=== PATIENT | male | born 1955 | race African-American/Black ===

== ENCOUNTER 2017-05-15 17:42 | Inpatient (IN) | payer MEDICARE ==
--- NOTE | ~2017-05-15 | EKG ---
PATIENT: DELMI VASQUEZ UNIT #: [id number] Ventricular Rate: 58 BPM Atrial Rate: 58 BPM P-R Interval: 172 ms QRS Duration: 80 ms Q-T Interval: 418 ms QTC Calculation(Bezet): 410 ms P [place]: 51 degrees Calculated R [place]: -19 degrees Calculated T [place]: 89 degrees Diagnosis Line: Sinus bradycardia Diagnosis Line: Poor R wave progression questionable lead position Diagnosis Line: or body habitus Diagnosis Line: Nonspecific T wave abnormality Diagnosis Line: Abnormal ECG Diagnosis Line: No previous ECGs available Diagnosis Line: Confirmed by KENDAL SMITH MD ([id number]) on Diagnosis Line: 05/16/2017 10:09:32 AM INTERPRETING MD: ROSA ISELA
--- NOTE | ~2017-05-15 | CT71 ---
[facility] A Service of [facility] RADIOLOGY TEXT RESULTS PATIENT: DELMI VASQUEZ LOCATION: [facility] 328- : 55 UNIT #: [id number] AGE: [address]: Brayan Kumar MD SEX: M ORDER DR: [id number] [facility] [address] [place], [place] [address] [id number] I MR#: [id number] Acc #: [id number] NAME: DELMI VASQUEZ : 1955 SEX: M STUDY DATE/TIME: 05/15/2017 23:29 UNIT: A U ROOM: [facility] STUDY DESCRIPTION: CT Head Wo Contrast Attending Physician: Brayan Kumar M.D. Ordering Physician: Ross Harper M.D. Primary Care Physician: Primary Care Physician No MEDICAL IMAGING REPORT This report is preliminary unless electronic signature is present EXAM CT scan of the head without contrast INDICATION Stroke in 2003 and the patient is now off balance with multiple falls in the last 2 months which is worse today. There is no comparison. This CT exam was performed with one or more of the following radiation dose reduction techniques: automatic exposure control, adjustment of mA and/or kV according to patient size, and iterative reconstruction. FINDINGS Axial noncontrast images were obtained from the skull base to the vertex. Ventricular size and configuration are normal. There is no evidence of acute infarct or hemorrhage. There are no extra-axial fluid collections. No mass lesion or mass effect is seen. There are no skull fractures. IMPRESSION Normal noncontrast head CT. Dictated by... Konrad Chu M.D. THIS IS AN ELECTRONICALLY VERIFIED REPORT Konrad Chu M.D. at 05/17/2017 5:01 AM GAETANO/ebony TD: 05/17/2017 00:44 [facility] A Service of [facility] RADIOLOGY TEXT RESULTS PATIENT: DELMI VASQUEZ LOCATION: [facility] 328- : 55 UNIT #: [id number] AGE: [address]: Brayan Kumar MD SEX: M ORDER DR: JOB #: [id number] MEDICAL IMAGING REPORT Page 1 of 1 COPY
--- NOTE | ~2017-05-15 | CO ---
Unit #: [id number] #: [id number] Patient: DELMI VASQUEZ [id number] [facility] [address] [place], [place] [address] [id number] I MR#: [id number] NAME: DELMI VASQUEZ ROOM: 328 Age: 62 Sex: M Admission Date: 05/15/2017 : 1955 Attending Physician: Brayan Kumar M.D. Requesting Physician: Brayan Kumar M.D. Consultation Date: 05/17/2017 CONSULTATION REPORT REASON FOR CONSULT CVA. PATIENT IDENTIFICATION A 62-year-old right-handed male evaluated in room 328 at [facility]. SOURCE OF INFORMATION Obtained from the patient and the patient's niece, as well as the medical record. HISTORY OF PRESENT ILLNESS This is a 62-year-old right-handed male with a past medical history reportedly of CVA in 2003, hypertension, and hyperlipidemia, who presented with complaints of per his niece facial drooping and being off balance. I initially discussed with the patient, though he seems to be a poor historian, and he states that his facial weakness has been present since his stroke and reports he came because he has been falling for a couple of weeks. He denies dizziness or vertigo, loss of consciousness, syncope, or new stroke symptoms. He denies focal weakness or paresthesia. He does complain of right facial pain, but when I ask further, he states it is his gums and not his face, and on exam he does appear to have a broken and diseased tooth in the area that he is feeling pain. I spoke with his niece via telephone, and then Dr. Loya and I spoke with her today at the bedside. She states that he lives with her, that she takes care of him, and that he has memory loss from his prior stroke. She states that he has been worsening over the past week or so with falls, tripping over his feet. There has been no loss of consciousness. She does report that his right facial weakness is new, but the patient reports that it is old. She reports that he was seen at [facility] in 2003 for stroke and was "in a coma" and has residual "memory loss." Patient was fully seen and evaluated, chart reviewed, and review of systems attempted. On exam, the patient initially looked as though he might have had right internuclear ophthalmoplegia with inability to move his right eye medially. There has been no ptosis. However, today, he appears to have orbicularis oculi weakness, but he is able to close his eyes and approximate. There is no clear ptosis, but he does appear to have weakness more so under his eyes and appears to have more of a picture of right seventh cranial nerve involvement including on his forehead and appears more prominent today. We looked at him with his niece who he lives with, and she states that this is all new and that it started on Unit #: [id number] #: [id number] Patient: DELMI VASQUEZ Wednesday. As far as the patient's complaints of falls, he is nonfocal on exam, but he does appear to have a wide-based mildly spastic gait, a little bit stooped, but he does not have any significant spasticity on exam. He does not have any increased tone, and whenever he says he falls, he states that he just gets tripped up. His niece states that he trips over his feet, and that there has been no focal weakness or paresthesia, and the patient denies any focal weakness or paresthesia. However, on evaluation of his MRI of the brain and MRA of the head and neck for possible stroke, there appears to be an abnormal appearance to the upper cervical spine visualized on the sagittal T1 weighted imaging of the brain. Therefore, we ordered an MRI of the C-spine to look at that given his history of falls recently. MRI of the cervical spine was reviewed at length by Dr. Loya at the time of his evaluation and discussed with the patient and the patient's niece at the bedside. Full dictated report is pending. However, it does show cord compression and cord signal change at C2-C3, and Dr. Loya is concerned about those findings regardless of his clinical examination. He does have more brisk reflexes in the lower extremities, a little bit hyperreflexive, unable to elicit reflexes in the lower extremities. Again, he is able to ambulate independently, but he does have a stooped posture and a mildly wide-based spastic gait. He does not appear to be myelopathic on exam, but MRI findings are certainly concerning especially if he is falling. PAST MEDICAL HISTORY 1. Stroke in 2003 per the patient's niece. I do not have the details regarding his stroke in 2003. His niece tells me that he was "in a coma" and has memory loss. 2. Hyperlipidemia. 3. Hypertension. 4. Benign prostatic hypertrophy. FAMILY HISTORY Noncontributory to the presenting condition. SOCIAL HISTORY The patient smokes cigars. He denies alcohol abuse or illicit drug use. ALLERGIES No known drug allergies. HOME MEDICATIONS 1. Simvastatin. 2. Toprol-XL. 3. Lexapro. 4. Flomax. 5. Plavix. REVIEW OF SYSTEMS Difficult to obtain from the patient as he is a poor historian, but a 14-point review of systems was attempted per the patient and with the niece as well contributing. Pertinent positives are as discussed above, otherwise negative. PHYSICAL EXAMINATION VITAL SIGNS: Temperature 99.5. He has had a T-max of 100; otherwise, he has been afebrile. Pulse 69, respirations 18, blood pressure 114/65, and Unit #: [id number] #: [id number] Patient: DELMI VASQUEZ oxygen saturation 98%. Height 5 feet 3 inches, weight 151 pounds. BMI is 24. NEUROLOGIC EXAMINATION GENERAL: Patient is awake. He is alert. He is oriented to person and place but not time. He is a poor historian. He recognizes his niece at the bedside. He follows simple commands. He has no tjptk-ha-lwjs confusion and no finger agnosia. He is not aphasic or dysarthric. CRANIAL NERVES: He demonstrates full garham of vision. At this time, he appears to have a clinical picture of seventh cranial nerve involvement on the right side. No clear ptosis, but as discussed above, has orbicularis oculi weakness, but he is able to close his eyes and approximate. He has right lower facial paralysis. He appears to have some exophthalmus and initially yesterday it appeared as though he had some trouble with medial movement of his right eye, but that is not evident today. Sensory exam is intact. Hearing is intact to finger rub and conversation. Tongue is midline, uvula is midline, and palate elevation is normal. Head turning and shoulder shrug is unremarkable. Neck is supple. MOTOR: He demonstrates normal bulk and tone. No increased tone or cogwheeling seen. Strength is essentially equal in all extremities 5 over 5 to 5+ over 5. SENSORY: Exam is intact. No extinction appreciated. GAIT: As discussed above. ROMBERG: Deferred. REFLEXES: As discussed above. COORDINATION: No pass-pointing and normal hrtqsk-iv-hote. DIAGNOSTIC STUDIES LABORATORY: CBC on arrival unremarkable. BMP unremarkable other than a BUN of 28, creatinine 1.7, estimated GFR 42.3, and total protein 8.5. PT 10.7, INR 1, and PTT 28.2. B12 of 426 and folate 13.8. IMAGING: (1) MRI of the brain without contrast, impression per Radiology report: No evidence for recent ischemic insult on the diffusion series. There is an abnormal appearance to the upper cervical spine where visualized on the sagittal T1-weighted imaging of the brain. Concern for severe cord flattening and canal stenosis, and it is possible that cervical cord myelopathic change is responsible for some of the patient's symptoms. 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 Patient has had prior posterior circulation insults with old lacunar-type insults to the left greater than the right cerebral hemisphere, medial thalami, and at least the right paramedian mid brain. Otherwise, mild probable sequelae of small vessel disease. No intracranial mass effect. Paranasal sinus disease right maxillary sinus but no air-fluid level. (2) MRA of the head without contrast on May 16, 2017, impression per Radiology report: No intracranial vascular cutoff is suspected. Right A1 vessels mildly hypoplastic, and there may be mild more distal narrowing. There is a triangular configuration to the vessels at the left side anterior communicator where it joins the left-sided A1 and A2 vessels. This is probably a developmental variation. No discrete saccular aneurysm is suspected, but the area of interest measures up to about 4 mm dimension, and for this reason recommend followup MR angiogram in about one year to assess for stability per Radiology report. (3) MRA of the neck without contrast on May 16, 2017, impression per Radiology report: By NASCET criteria, no hemodynamically significant narrowing suspected at either carotid bifurcation. Both vertebral arteries are patent in the visualized portions. (4) MRI of the cervical spine, full dictated report is pending, Unit #: [id number] #: [id number] Patient: DELMI VASQUEZ voice clip reviewed and discussed above. Imaging reviewed by Dr. Loya at the time of his evaluation and discussed above. (5) CT of the head without contrast on May 15, 2017, impression per Radiology report: Normal. CARDIOLOGY: EKG on May 16, 2017, per Cardiology report: Sinus bradycardia, poor R wave progression, questionable lead position or body habitus, and nonspecific T wave abnormality. Other labs and diagnostic studies are as per chart and have been reviewed. IMPRESSION 1. New complaint of falls, subacute, with abnormal cervical spine imaging. 2. 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 Will start the patient on Famvir and prednisone with symptoms that started on Wednesday. See Dr. Loya's orders in his note. He has ordered Famvir, prednisone, eye patch, and Lacri-Lube. MRI of the brain is negative for any acute stroke. DISCUSSION Dr. Loya discussed with the patient and the patient's niece who he lives with at length. What is worrisome is that he appears to have severe C2-C3 area canal problems and myelopathic changes which could be old, but they are very severe, his gait is abnormal, and he is falling. He is at risk of more issues if he falls again which makes clinical picture much more concerning. Dr. Loya discussed with the patient, the patient's niece, and also with Dr. Broussard, the hospitalist physician. The family wants him transferred to another facility that can provide neurosurgical or spine surgical evaluation, and efforts are being made to transfer him to [facility] per the admitting team at this time. 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 From our standpoint, he is okay to transfer. Dr. Loya has seen the patient, and he agrees with the above dictation. We thank you very much for allowing us to assist in the care of this patient. Dictated by... Aelxa Davidson A.P.R.N. for Dulce Baugh/annamarie TD: 05/17/2017 18:06 JOB #: [id number] CONSULTATION REPORT Page 1 of 1 X Alexa Davidson APRN X CONSULTATION REPORT
--- NOTE | ~2017-05-15 | HP ---
Unit #: [id number] #: [id number] Patient: DELMI VASQUEZ [id number] [facility]. [place], [place] [address] [id number] I MR#: [id number] NAME: DELMI VASQUEZ ROOM: 328 Age: 62 Sex: M Admission Date: 05/15/2017 : 1955 Attending Physician: Brayan Kmuar M.D. HISTORY AND PHYSICAL CHIEF COMPLAINT Fall. HISTORY OF PRESENT ILLNESS The patient is a 68-year-old male who is a very poor historian. He states that he came to the hospital because his niece overreacted. He states that he had a fall at home, and that he thinks that he is okay, but his niece overreacted and insisted that he come. He is unwilling to admit to any other symptoms or complaint; therefore, from the chart I glean that the patient has been admitted for possible stroke. PAST MEDICAL HISTORY The patient denies any significant past medical history. He says he has only sinus trouble. PAST SURGICAL HISTORY The patient tells me he has had one surgery, but it has been such a long time ago that he does not remember what it is. SOCIAL HISTORY The patient states he smokes cigars but denies alcohol and illicit drug use. FAMILY HISTORY The patient denies any significant family history. HOME MEDICATIONS 1. Simvastatin 40 mg daily. 2. Toprol-XL 50 mg p.o. daily 3. Lexapro 20 mg daily. 4. Flomax 0.4 mg p.o. daily. 5. Plavix 75 mg p.o. daily. ALLERGIES No known drug allergies. REVIEW OF SYSTEMS Essentially unable to obtain. The patient denies any and all problems, though he does again, admit to a fall. PHYSICAL EXAMINATION VITAL SIGNS: Temperature 98.8, pulse 69, and blood pressure 104/68. GENERAL: A 62-year-old male in no acute distress who appears stated age. HEENT: Pupils equally round. Extraocular movements intact. Mucous Unit #: [id number] #: [id number] Patient: DELMI VASQUEZ membranes dry. NECK: Supple. No JVD, no lymphadenopathy. CARDIAC: Regular rate and rhythm. No murmurs, gallops, or rubs. LUNGS: Clear to auscultation bilaterally. ABDOMEN: Nontender and nondistended. Positive bowel sounds. EXTREMITIES: No clubbing, cyanosis, or edema. They are warm and dry. PSYCHIATRIC: Alert and oriented x3. Affect is appropriate. NEUROLOGIC: Patient has some facial droop but no slurred speech. Muscle strength is full in all extremities. SKIN: No rashes, bruises, or ulcers. MUSCULOSKELETAL: No muscle or joint pain. No muscle or joint swelling. DIAGNOSTIC STUDIES LABORATORY: Creatinine is 1.7; otherwise, chemistries are normal. Coagulation studies are normal. CBC is normal. IMAGING: CT head without contrast is noted to have no acute intracranial abnormalities. ASSESSMENT AND PLAN 1. Facial droop. The patient has been admitted for workup for possible stroke. MRI/MRA is pending. 2. Prophylaxis. The patient will be started on Lovenox. 1. Dictated by Dulce Duffy/annamarie TD: 05/16/2017 14:44 JOB #: [id number] HISTORY AND PHYSICAL Page 1 of 1 X Brayan Kumar MD HISTORY AND PHYSICAL
--- NOTE | ~2017-05-15 | MR18 ---
[facility] A Service of [facility] RADIOLOGY TEXT RESULTS PATIENT: DELMI VASQUEZ LOCATION: [facility] 328-01 : 55 UNIT #: [id number] AGE: [address]: Brayan Kumar MD SEX: M ORDER DR: [id number] [facility] [address] [place], [place] [address] [id number] I MR#: [id number] Acc #: [id number] NAME: DELMI VASQUEZ : 1955 SEX: M STUDY DATE/TIME: 05/16/2017 11:11 UNIT: A PCU ROOM: 328 STUDY DESCRIPTION: MR Brain Wo Contrast Attending Physician: Brayan Kumar M.D. Ordering Physician: Soha Willingham M.D. Primary Care Physician: Primary Care Physician No MRI CENTER REPORT This report is preliminary unless electronic signature is present. EXAM Brain MRI without HISTORY CVA, complains of being off balance with multiple falls for 2 months worse since 05/15/2017. History of hypertension and stroke. Please evaluate for new stroke. COMMENT MRI of the brain was performed without contrast using routine 1.5T imaging technique. There is earlier head CT from 05/15/2017. There is no evidence for recent ischemic insult on the diffusion series. Some degenerative change partly seen in the upper cervical spine and I believe there is severe canal stenosis and significant cord compromise at the level of C2-3. In light of history, I would recommend correlation with an MRI of the cervical spine for further characterization since this could be resulting in myelopathic change. I suspect given the signal characteristics in the upper cervical spine that there is ossification of the posterior longitudinal ligament. There is no MRI evidence for intracranial hemorrhage. There is chronic lacunar type insult at the periphery of the left cerebellar hemisphere superiorly. Smaller chronic lacunar disease right cerebellar hemisphere. The major intracranial flow voids are maintained. The patient has old lacunar insults in the bilateral medial basal ganglia and probably the midbrain particularly right paramedian location. Please correlate with history of prior posterior circulation insult. Otherwise, there is mild white matter signal abnormality in the subcortical deep and periventricular white matter of the supratentorial brain most confluent in STS. [facility] A Service of [facility] & [facility] RADIOLOGY TEXT RESULTS PATIENT: DELMI VASQUEZ LOCATION: [facility] 328-01 : 55 UNIT #: [id number] AGE: [address]: Brayan Kumar MD SEX: M ORDER DR: the periventricular white matter. There is no extraaxial fluid collection. There is mucosal thickening in the right maxillary sinus, moderate and somewhat polypoid, but there is no sinus air-fluid level. The patient has had cataract surgery bilaterally and gaze is disconjugate. Mastoid air cells are essentially clear. There is no intracranial mass effect. IMPRESSION 1. No evidence for a recent ischemic insult on the diffusion series. 2. There is an abnormal appearance to the upper cervical spine where visualized on the sagittal T1-weighted imaging of the brain. I am concerned for severe cord flattening and canal stenosis and it is possible that cervical cord myelopathic change is responsible for some of the patient's symptoms. For this reason, I would recommend that the patient be further evaluated with an MRI of the cervical spine. 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 3. Patient has had prior posterior circulation insults with old lacunar type insults to the left greater than right cerebral hemisphere, medial thalami and at least the right paramedian mid brain. Please correlate with history. Otherwise, there is mild probable sequelae of small vessel disease. No intracranial mass effect. 4. Paranasal sinus disease right maxillary sinus but no air-fluid level. STAT * RESULT Dictated by... Ana Pérez M.D. THIS IS AN ELECTRONICALLY VERIFIED REPORT Ana Pérez M.D. at 05/16/2017 2:23 PM PATY/viviane TD: 05/16/2017 13:15 JOB #: [id number] MRI CENTER REPORT Page 1 of 1 COPY
--- NOTE | ~2017-05-15 | DS ---
Unit #: [id number] #: [id number] Patient: DELMI VASQUEZ [id number] [address] [place], [place] [address] [id number] I MR#: [id number] NAME: DELMI VASQUEZ ROOM: 328 Age: 62 Sex: M Admission Date: 05/15/2017 : 1955 Discharge Date: 05/17/2017 Attending Physician: Brayan Kumar M.D. 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 CONSULTATIONS Neurology. DIAGNOSTIC STUDIES IMAGING: MRI brain. Impression - 1) No evidence of recent ischemic insult. 2) Abnormal appearance to the upper cervical spine where visualized on the sagittal T1-weighted imaging of the brain. Concern for severe cord flattening and canal stenosis. Possible cervical cord myelopathic change. Recommend cervical spine MRI. HISTORY OF PRESENT ILLNESS AND HOSPITAL COURSE This 68-year-old man who is a very poor historian presented to the hospital due to a fall at home. He was noted to have right-sided facial weakness on admission. The patient is unclear as to the duration of his symptoms. The patient states that he has had this right-sided facial weakness from a prior stroke. However, the patient's niece states that this is a new symptom. Neurology evaluated the patient, and the patient was diagnosed with Suarez palsy. He was started on Famvir 500 mg twice a day and prednisone 20 mg 3 times a day. Given the MRI findings suggestive of cervical spine stenosis and possible cord compression, neurology recommended the patient be transferred to [facility] for neurosurgery evaluation. DISCHARGE/TRANSFER MEDICATIONS 1. Prednisone 20 mg p.o. t.i.d. 2. Flomax 0.4 mg p.o. daily. 3. Lexapro 20 mg p.o. daily. 4. Famciclovir 500 mg p.o. b.i.d. 5. Metoprolol 50 mg p.o. daily. 6. Lipitor 20 mg p.o. at bedtime. 7. Carboxymethylcellulose eyedrops right eye q.4 hours as needed. 8. Plavix 75 mg p.o. daily. DISCHARGE INSTRUCTIONS The patient is to be transferred to [facility] for neurosurgery consultation for further evaluation of possible severe cervical cord flattening and canal stenosis seen on MRI brain imaging. The patient underwent MRI cervical spine. Official report is pending. Unit #: [id number] #: [id number] Patient: DELMI VASQUEZ Dictated by... Dulce Duffy/per TD: 05/18/2017 13:45 JOB #: [id number] DISCHARGE SUMMARY Page 1 of 1 X Brayan Kumar MD X DISCHARGE SUMMARY
--- NOTE | ~2017-05-15 | MR122 ---
[facility] A Service of [facility] & [facility] RADIOLOGY TEXT RESULTS PATIENT: DELMI VASQUEZ LOCATION: [facility] 328-01 : 55 UNIT #: [id number] AGE: [address]: Brayan Kumar MD SEX: M ORDER DR: [id number] [facility] [address] [place], [place] [address] [id number] MR#: [id number] Acc #: [id number] NAME: DELMI VASQUEZ : 1955 SEX: M STUDY DATE/TIME: 05/16/2017 11:31 UNIT: A U ROOM: [facility] STUDY DESCRIPTION: MR MRA Head Wo Contrast Attending Physician: Brayan Kumar M.D. Ordering Physician: Alexa Davidson A.P.R.N. Primary Care Physician: Primary Care Physician No MRI CENTER REPORT This report is preliminary unless electronic signature is present. EXAM MRA head without contrast HISTORY Stroke symptoms. MR angiogram. Patient has complaints being off balance with multiple falls for 2 months becoming worse on 05/15/2017. COMMENT MR angiography performed [place] vasculature without contrast. See separate MRI brain MR angiogram neck dictations. There is no intracranial vascular cutoff. There is fullness at the left side of the anterior communicator junction with the left A1 A2 vessels with a triangular configuration. It is somewhat ectatic but no saccular aneurysm is appreciated. I would suggest 1-year MR angiographic followup. Interest is about 4 mm in largest dimension. The right A1 vessel is probably mildly hypoplastic and there may be some more focal mild narrowing distally. No other possible focal central stenosis is suspected. IMPRESSION 1. No intracranial vascular cutoff is suspected. 2. Right A1 vessels mildly hypoplastic and there may be mild more distal narrowing. 3. There is a triangular configuration to the vessels at the left side anterior communicator were it joins the left-sided A1 and A2 vessels. This is probably a developmental variation. No discrete saccular aneurysm is suspected but the area of interest measures up to about 4 mm dimension and for this reason I would recommend follow up MR angiogram at about 1 year to assess for stability. Dictated by... Ana Pérez M.D. [facility]. [facility] A Service of [facility] & [facility] RADIOLOGY TEXT RESULTS PATIENT: DELMI VASQUEZ LOCATION: A 328-01 : 55 UNIT #: [id number] AGE: [address]: Brayan Kumar MD SEX: M ORDER DR: THIS IS AN ELECTRONICALLY VERIFIED REPORT Ana Pérez M.D. at 05/18/2017 8:40 AM PATY/jluissa TD: 05/17/2017 08:58 JOB #: [id number] MRI CENTER REPORT Page 1 of 1 COPY
--- NOTE | ~2017-05-15 | MR32 ---
[facility] A Service of [facility] RADIOLOGY TEXT RESULTS PATIENT: DELMI VASQUEZ LOCATION: [facility] - : 55 UNIT #: [id number] AGE: [address]: Brayan Kumar MD SEX: M ORDER DR: [id number] [facility] [address], [place] [address] [id number] MR#: [id number] Acc #: [id number] NAME: DELMI VASQUEZ : 1955 SEX: M STUDY DATE/TIME: 05/17/2017 11:21 UNIT: C3A PCU ROOM: [facility] STUDY DESCRIPTION: MR Cervical Wo Contrast Attending Physician: Brayan Kumar M.D. Ordering Physician: Brayan Kumar M.D. Primary Care Physician: Primary Care Physician No MRI CENTER REPORT This report is preliminary unless electronic signature is present. EXAM Cervical spine MRI, no contrast, 05/17/2017 PROCEDURE Routine cervical spine MRI without contrast COMPARISON None. CLINICAL HISTORY Loss of balance with multiple falls for 2 months, worsening over the past 3 days. FINDINGS There is a reversal of lordosis and there is fairly extensive ossification of the posterior longitudinal ligament from at least C2 to C5. There is abnormal cord signal at the level of the 2-3 disc, though limited. Cord signal is otherwise normal and the posterior fossa and its contents are normal. There is no aina or retrolisthesis or acute marrow edema at any level. Paraspinous tissues are unremarkable. At C2-3, ossified posterior longitudinal ligament that benign behind the mid to lower C2 vertebral body creates severe canal stenosis and severe cord compression. There is perhaps only mild or dsqm-id-ybbowojb foraminal narrowing bilaterally. At C3-4, this same ossified posterior longitudinal ligament causes at least moderate if not yuwlwmdk-lr-cdjoqa cord compression and mild right but moderate left foraminal compromise. [facility] A Service [facility] RADIOLOGY TEXT RESULTS PATIENT: DELMI VASQUEZ LOCATION: [facility] : 55 UNIT #: [id number] AGE: [address]: Brayan Kumar MD SEX: M ORDER DR: At C4-5, there is still ossified posterior longitudinal ligament but only mild cord compression and mild bilateral foraminal compromise. At C5-6, there is a bony ridge with minimal canal narrowing and no cord compression, and minimal if any right and moderate left foraminal narrowing and at C6-7 there is mild canal stenosis and borderline to mild bilateral foraminal narrowing. At 7-1, there is mild canal stenosis produced primarily by facet degenerative change on the right with mild to moderate right and minimal if any left foraminal narrowing. IMPRESSION Extensive ossification of the posterior longitudinal ligament from mid to upper C2 down to the lower endplate of C4 with consequent canal stenosis and cord compression most severe at the level of the 2-3 disc with mild abnormal T2 cord signal. Please see above for additional xkckr-dd-txlji details. Dictated by... Quang Beatty M.D. THIS IS AN ELECTRONICALLY VERIFIED REPORT Quang Beatty M.D. at 05/19/2017 10:29 AM KATHLEEN/ebony TD: 05/17/2017 22:55 JOB #: [id number] MRI CENTER REPORT Page 1 of 1 COPY
--- NOTE | ~2017-05-15 | MR134 ---
[facility] A Service [facility] RADIOLOGY TEXT RESULTS PATIENT: DELMI VASQUEZ LOCATION: [facility] : 55 UNIT #: [id number] AGE: [address]: Brayan Kumar MD SEX: M ORDER DR: [id number] [facility] [address] [facility] [place] [facility] [place], [place] [address] [id number] MR#: [id number] Acc #: [id number] NAME: DELMI VASQUEZ : 1955 SEX: M STUDY DATE/TIME: 05/16/2017 11:43 UNIT: A PCU ROOM: [facility] STUDY DESCRIPTION: MR MRA Neck Wo Contrast Attending Physician: Brayan Kumar M.D. Ordering Physician: Alexa Davidson A.P.R.N. Primary Care Physician: Primary Care Physician No MRI CENTER REPORT This report is preliminary unless electronic signature is present. EXAM MR angiogram of the neck without HISTORY Acute stroke. Patient is off balance with multiple falls worse since 05/15/2017. History of prior stroke also. COMMENT MR angiography performed neck vessels centered at the level of the carotid bifurcations. By NASCET criteria, there does not appear to be hemodynamically significant narrowing at either carotid bifurcation. Both vertebral arteries are patent in their visualized portions and the right is mildly dominant. IMPRESSION By NASCET criteria, no hemodynamically significant narrowing suspected at either carotid bifurcation. Both vertebral arteries are patent in the visualized portions. Dictated by... Ana Pérez M.D. THIS IS AN ELECTRONICALLY VERIFIED REPORT Ana Pérez M.D. at 05/18/2017 8:40 AM PATY/viviane TD: 05/17/2017 09:04 [facility] A Service [facility] RADIOLOGY TEXT RESULTS PATIENT: DELMI VASQUEZ LOCATION: [facility] - : 55 UNIT #: [id number] AGE: [address]: Brayan Kumar MD SEX: M ORDER DR: MALATHI #: [id number] MRI CENTER REPORT Page 1 of 1 COPY
[2017-05-15 20:00] LABS: BASOPHIL% 0.4 % (0-2.5); EOSINOPHIL# 0.1 X10e3 (0-0.7); EOSINOPHIL% 0.7 % (0.0-7.0); HEMATOCRIT 43.9 % (38.0-50.0); HEMOGLOBIN 14.4 gm/dL (13.0-16.0); LYMPHOCYTE# 1.2 X10e3 (1.0-3.5); LYMPHOCYTE% 14.4 % (17.0-45.0); MEAN CELL VOLUME 94.2 FL (83-96); MEAN CORPUSCULAR HEMOGLOBIN 30.8 PG (28-34); MEAN CORPUSCULAR HGB CONC 32.7 g/dL (30-36); MEAN PLATELET VOLUME 8.2 FL (6.5-11.5); MONOCYTE# 0.9 X10e3 (0-1.0); MONOCYTE% 10.6 % (3.0-12.0); NEUTROPHIL# 6.2 X10e3 (1.5-7.1); NEUTROPHIL% 73.9 % (40-75); PLATELET COUNT 212 X10e3 (140-420); RED BLOOD COUNT 4.66 X10e (3.90-5.60); RED CELL DISTRIBUTION WIDTH 13.6 % (11.0-15.5); WHITE BLOOD COUNT 8.4 X10e3 (4.0-10.5)
[2017-05-15 20:11] LABS: DIFF IND NO
[2017-05-15 20:24] LABS: PARTIAL THROMBOPLASTIN TIME 28.2 SECONDS (23.5-31.3); PROTHROMBIN TIME (PATIENT) 10.7 SECONDS (10.0-11.7)
[2017-05-15 20:25] LABS: ALBUMIN SERUM 3.9 g/dL (3.5-5.0); BILIRUBIN, DIRECT 0.1 mg/dL (0.0-0.2); BILIRUBIN,INDIRECT 0.3 mg/dL (0.0-0.9); BILIRUBIN,TOTAL 0.4 mg/dL (0.2-2.0); BUN/CREATININE RATIO 16.47; CALCIUM SERUM 9.5 mg/dL (8.4-10.2); CREATININE SERUM 1.7 mg/dL (0.6-1.4); GLOM FILT RATE Estimated 42.3 mL/min (>60); POTASSIUM 3.9 mmol/L (3.5-5.1); PROTEIN TOTAL SERUM 8.5 g/dL (6.0-8.3)
[2017-05-16] MEDS ORDERED: CLOPIDOGREL75 MG PO (01:33)
[2017-05-16] MEDS ORDERED: FLOMAX0.4 M1 PO (01:34)
[2017-05-16] MEDS ORDERED: ESCITALOPRAM OX20 MG PO (01:34)
[2017-05-16] MEDS ORDERED: TOPROL XL50 MG PO (01:35)
[2017-05-16] MEDS ORDERED: SIMVASTATIN40 MG PO (01:35)
[2017-05-17 06:39] LABS: FOLATE (FOLIC ACID) 13.8 ng/mL (>5.8)
== END 2017-05-17 19:30 | DRG 74 ==
LOC: CED 17:42 → C3A PCU 23:45 → CEDOF 23:45 → CED 05-16 00:15 → CEDOF 05-16 00:15 → C3A PCU 05-16 09:15
PROVIDERS: Emergency Medicine; Internal Medicine
DX: G51.0 Bell's palsy (principal); M48.02 Spinal stenosis, cervical region; I10 Essential (primary) hypertension; I69.392 Facial weakness following cerebral infarction; I69.311 Memory deficit following cerebral infarction; N40.0 Benign prostatic hyperplasia without lower urinary tract symptoms; E78.5 Hyperlipidemia, unspecified; F17.290 Nicotine dependence, other tobacco product, uncomplicated
CPT/HCPCS: 36415; 70450; 70544; 70547; 70551; 72141; 80048; 80076; 82607; 82746; 82947; 85025; 85610; 85730; 93005; 97116; 97162; 97166; 97535; 99285; G8978-GP; G8979-GP; G8987-GO; G8988-GO